=== PATIENT | male | born 1965 | race Caucasian/White ===

== ENCOUNTER 2018-05-29 09:46 | Emergency (ER) | payer MEDICAID ==
[~2018-05-29] VITALS: Ht 180.3 cm; Wt 62.6 kg
[2018-05-29 09:57] VITALS: Ht 180.3 cm; Wt 62.6 kg
[2018-05-29 10:44] VITALS: BP 135/72
== END 2018-05-29 10:44 | disposition home or self-care (01) ==
LOC: ED 09:46
DX: S61.412D Laceration without foreign body of left hand, subsequent encounter (principal); L08.9 Local infection of the skin and subcutaneous tissue, unspecified; F17.210 Nicotine dependence, cigarettes, uncomplicated; W45.8XXD Other foreign body or object entering through skin, subsequent encounter

== ENCOUNTER 2018-06-02 08:15 | Emergency (ER) | payer MEDICAID ==
[~2018-06-02] VITALS: Ht 180.3 cm; Wt 60.1 kg
[2018-06-02 08:19] VITALS: Ht 180.3 cm; Wt 60.1 kg
[2018-06-02 08:51] VITALS: BP 142/84
== END 2018-06-02 08:51 | disposition home or self-care (01) ==
LOC: ED 08:15
DX: S61.217D Laceration without foreign body of left little finger without damage to nail, subsequent encounter (principal); X58.XXXD Exposure to other specified factors, subsequent encounter